=== PATIENT | male | born 1960 | race American Indian/Alaskan Native ===

== ENCOUNTER 2017-04-25 08:35 | Emergency (ER) | payer OTHER ==
[2017-04-25 08:49] VITALS: BMI 28.5
[2017-04-25 08:54] VITALS: BP 150/96; PULSE 68; RESP 18; TEMP 98.2; O2SAT 99
--- NOTE | 2017-04-25 09:04 | C.PDOC ---
History Of Present Illness 56 yo male w/PMHx of gout come in for evaluation of Right knee pain gradually developed for 2 days. Pt reports, pain is localized over Right anterior knee associated with mild swelling. previous sx in past, c/w gout arthritis. Otherwise, pt denies known trauma or injury, fever, chills, knee deformity, denies Right leg weakness, sensory or vascular deficits. Ambulate to Ed for evaluation, not in any apparent distress. Time Seen by Provider: 04/25/17 08:40 Chief Complaint (Nursing): Lower Extremity Problem/Injury History Per: Patient Past Medical History Reviewed: Historical Data, Nursing Documentation, Vital Signs Vital Signs: Last Vital Signs Temp 98.2 F 04/25/17 08:48 Pulse 68 04/25/17 08:48 Resp 18 04/25/17 08:48 BP 150/96 H 04/25/17 08:48 Pulse Ox 99 04/25/17 08:48 - Medical History PMH: Arthritis (Gouty), Diabetes, Fractures (Left Hand), HTN, Hypercholesterolemia, Sleep Apnea (Uses CPAP) Surgical History: Endoscopy - [facility] Procedures ESOPHAGOGASTRODUODENOSCOPY [EGD] W/CLOSED BIOPSY (03/04/14) INJECT/INFUSE NEC (03/28/12) LAPAROSCOPIC ROBOTIC ASSISTED PROCEDURE (07/12/14) LAPAROSCOPIC VERTICAL (SLEEVE) GASTRECTOMY (07/12/14) OTHER ENDOSCOPY OF SM INTEST (07/12/14) TETANUS TOXOID ADMINIST (01/21/15) Family History: States: Unknown Family Hx - Social History Hx Tobacco Use: No Hx Alcohol Use: Yes Hx Substance Use: No - Immunization History Hx Tetanus Toxoid Vaccination: No Hx Influenza Vaccination: Yes (06/2015) Hx Pneumococcal Vaccination: Yes (2014) Review Of Systems Except As Marked, All Systems Reviewed And Found Negative. Constitutional: Negative for: Fever, Chills ENT: Negative for: Throat Pain Respiratory: Negative for: Cough, Shortness of Breath Gastrointestinal: Negative for: Nausea, Vomiting, Abdominal Pain, Diarrhea Musculoskeletal: Positive for: Other (Right knee pain) Skin: Negative for: Lesions Neurological: Negative for: Weakness, Numbness Physical Exam - Physical Exam Appears: Well, Non-toxic, No Acute Distress Skin: Normal Color, Warm, No Rash, No Ecchymosis Neck: Supple Extremity: Normal ROM (Right knee), Tenderness (Right knee tenderness over patella with mild edema. Mild warmth, no erythema, no deformity. FAROM, no neyrovascular deficits.), No Calf Tenderness, No Deformity, No Swelling Neurological/Psych: Oriented x3, Normal Speech, Normal Motor, Normal Sensation, Normal Reflexes ED Course And Treatment Progress Note: On re-evaluation, pt is afebrile, hemodynamicaly stable. Non- toxic. Ambulatory in ED with stable gait. Right knee: exam c/w knee arthralgia. FAROM, no neurovascular deficits, no cellulitis. Pt advised. ref. to F/u with PMD and Ortho in 2-3 days for re-eavl. return to ED if any worsening or new changes. Disposition Counseled Patient/Family Regarding: Diagnosis, Need For Followup, Rx Given - Disposition Referrals: Nemo Galindo MD [Staff Provider] - Disposition: HOME/ ROUTINE Disposition Time: 09:12 Condition: STABLE Additional Instructions: take medication as prescribed Light duty to Right knee Follow up with PMD in 2-3 days for re-evaluation. Return to Ed if any worsening or new changes. Prescriptions: Prednisone [Deltasone] 40 mg PO DAILY #6 tablet Instructions: Gout (ED) Forms: [employer] (Croatian) - Clinical Impression Clinical Impression: Gouty arthropathy
[2017-04-25] MEDS ORDERED: Dexamethasone 4 mg/1 ml IVP STA (09:11)
[2017-04-25] MEDS ORDERED: Dexamethasone 4 mg/1 ml IM STA (09:12)
[2017-04-25] MEDS ORDERED: Dexamethasone 4 mg/1 ml ONE (09:15)
== END 2017-04-25 09:20 | disposition home or self-care (01) ==
LOC: C.ER 08:35
DX: M10.9 Gout, unspecified (principal)
CPT/HCPCS: 96372; 99284; J1100; J1885

== ENCOUNTER 2017-05-02 07:57 | Emergency (ER) | payer OTHER ==
[2017-05-02 09:15] VITALS: BMI 26.4
[2017-05-02] MEDS ORDERED: Lidocaine 1% Inj (20ml) INFIL ONE (09:15)
[2017-05-02] MEDS ORDERED: Bacitracin 500 Units/gm Oint Foilpak UD TOP ONE (09:16)
[2017-05-02] MEDS ORDERED: Bacitracin Ointment 30 GM TUBE TOP STA (09:16)
[2017-05-02] MEDS ORDERED: Bacitracin 500 Units/gm Oint Foilpak UD ONE ×2 (09:22→09:28)
[2017-05-02] MEDS ORDERED: Lidocaine 1% Inj (20ml) ONE (09:22)
[2017-05-02 09:24] VITALS: BP 162/82; PULSE 85; RESP 20; TEMP 98.9; O2SAT 98
--- NOTE | 2017-05-02 09:30 | C.PDOC ---
History Of Present Illness Patient is a 56 y/o M presenting with pain to R thumb. He reports that he pulled on cuticle on that finger and then he developed pain and some swelling. Denies fever. Tetanus UTD Time Seen by Provider: 05/02/17 09:15 Past Medical History Vital Signs: Last Vital Signs Temp 98.9 F 05/02/17 09:21 Pulse 85 05/02/17 09:21 Resp 20 05/02/17 09:21 BP 162/82 H 05/02/17 09:21 Pulse Ox 98 05/02/17 09:48 - Medical History PMH: Arthritis (Gouty), Diabetes, Fractures (Left Hand), HTN, Hypercholesterolemia, Sleep Apnea (Uses CPAP) Surgical History: Endoscopy - [facility] Procedures ESOPHAGOGASTRODUODENOSCOPY [EGD] W/CLOSED BIOPSY (03/04/14) INJECT/INFUSE NEC (03/28/12) LAPAROSCOPIC ROBOTIC ASSISTED PROCEDURE (07/12/14) LAPAROSCOPIC VERTICAL (SLEEVE) GASTRECTOMY (07/12/14) OTHER ENDOSCOPY OF SM INTEST (07/12/14) TETANUS TOXOID ADMINIST (01/21/15) Family History: States: Unknown Family Hx - Social History Hx Tobacco Use: No Hx Alcohol Use: Yes Hx Substance Use: No - Immunization History Hx Tetanus Toxoid Vaccination: Yes (2013) Hx Influenza Vaccination: Yes (06/2015) Hx Pneumococcal Vaccination: Yes (2014) Review Of Systems Constitutional: Negative for: Fever, Chills, Malaise Cardiovascular: Negative for: Chest Pain Respiratory: Negative for: Cough Gastrointestinal: Negative for: Nausea, Vomiting, Abdominal Pain, Diarrhea, Constipation Musculoskeletal: Positive for: Hand Pain Skin: Positive for: Other (+paronychia) Neurological: Negative for: Weakness, Numbness Physical Exam - Physical Exam Appears: Well, Non-toxic, No Acute Distress Head: Atraumatic, Normacephalic Eye(s): bilateral: Normal Inspection, PERRL, EOMI Extremity: No Deformity, Other (paronychia to lateral nail fold of R thumb, no surrounding erythema. normal ROM. Distal pulses intact) Neurological/Psych: Oriented x3, Normal Speech Gait: Steady ED Course And Treatment O2 Sat by Pulse Oximetry: 98 Medical Decision Making Medical Decision Making: Hand soaked in betadine. 1cc 1% lidocaine injected into R thumb. Lateral nail fold was elevated and purulent discharge drained with resolution of pain and swelling. No active bleeding. Wound again cleaned and bacitracin and dressing applied. Disposition - Disposition Disposition: HOME/ ROUTINE Disposition Time: 09:32 Condition: GOOD Additional Instructions: Follow-up with PMD within 2 days. Monitor blood glucose. Return to ED immediately with any worsening symptoms. Instructions: Paronychia (ED) - Clinical Impression Clinical Impression: Paronychia
== END 2017-05-02 10:05 | disposition home or self-care (01) ==
LOC: C.ER 07:57
DX: L03.011 Cellulitis of right finger (principal)

== ENCOUNTER 2017-10-09 10:10 | Emergency (ER) | payer OTHER ==
[2017-10-09 10:11] VITALS: BMI 26.4
[2017-10-09 11:23] LABS: BASO % 0.8 % (0.0-2.0); EOS # 0.1 K/uL (0.0-0.7); EOS % 2.3 % (0.0-4.0); HEMOGLOBIN 12.6 g/dL (12.0-18.0); LYMPH # 1.4 K/uL (1.0-4.3); LYMPH % 23.7 % (20.0-40.0); MEAN CELL VOLUME 85.5 fL (80.0-94.0); MEAN CORPUSCULAR HEMOGLOBIN 28.6 pg (27.0-31.0); MEAN CORPUSCULAR HGB CONC 33.5 g/dL (33.0-37.0); MEAN PLATELET VOLUME 9.4 fL (7.2-11.7); MONO # 0.6 K/uL (0.0-0.8); MONO % 10.5 % (0.0-10.0); NEUT # 3.6 K/uL (1.8-7.0); NEUT % 62.7 % (50.0-75.0); NRBC % 0.1 % (0.0-2.0); RBC 4.41 Mil/uL (4.40-5.90); RED CELL DISTRIBUTION WIDTH 14.7 % (11.5-14.5); WHITE BLOOD COUNT 5.7 K/uL (4.8-10.8)
[2017-10-09 11:29] LABS: URINE BILIRUBIN NEGATIVE (NEGATIVE); URINE BLOOD NEGATIVE (NEGATIVE); URINE CLARITY Clear (Clear); URINE COLOR Straw (YELLOW); URINE GLUCOSE (UA) 3+ mg/dL (Normal); URINE LEUKOCYTE ESTERASE NEG Leu/uL (Negative); URINE NITRATE NEGATIVE (NEGATIVE); URINE PROTEIN NEGATIVE (NEGATIVE); URINE UROBILINOGEN NORMAL mg/dL (0.2-1.0)
--- NOTE | 2017-10-09 11:42 | C.PDOC ---
History Of Present Illness 56-year-old male, PMHx includes Diabetes and Hypertension, presents to the emergency department with complaints of abdominal pain. Patient states he has been experiencing epigastric abdominal pain for the past week, that is associated with nausea, non-bloody/non-bilious vomiting, and watery non-bloody diarrhea. Pain is localized in nature and waxing/waning. Denies fevers, chills, chest pain, shortness of breath, dizziness, back pain, symptoms, headaches, or any other associated symptoms. No other complaints at this time. Time Seen by Provider: 10/09/17 10:34 Chief Complaint (Nursing): Abdominal Pain History Per: Patient History/Exam Limitations: no limitations Onset/Duration Of Symptoms: Days Current Symptoms Are (Timing): Still Present Severity: Moderate Location Of Pain/Discomfort: Epigastric Past Medical History Reviewed: Historical Data, Nursing Documentation, Vital Signs Vital Signs: Last Vital Signs Temp 98.2 F 10/09/17 13:46 Pulse 67 10/09/17 13:46 Resp 20 10/09/17 13:48 BP 161/81 H 10/09/17 13:46 Pulse Ox 99 10/09/17 13:46 - Medical History PMH: Arthritis (Gouty), Diabetes, Fractures (Left Hand), HTN, Hypercholesterolemia, Sleep Apnea (Uses CPAP) Surgical History: Endoscopy - [facility] Procedures ESOPHAGOGASTRODUODENOSCOPY [EGD] W/CLOSED BIOPSY (03/04/14) INJECT/INFUSE NEC (03/28/12) LAPAROSCOPIC ROBOTIC ASSISTED PROCEDURE (07/12/14) LAPAROSCOPIC VERTICAL (SLEEVE) GASTRECTOMY (07/12/14) OTHER ENDOSCOPY OF SM INTEST (07/12/14) TETANUS TOXOID ADMINIST (01/21/15) Family History: States: No Known Family Hx - Social History Hx Tobacco Use: No Hx Alcohol Use: Yes Hx Substance Use: No - Immunization History Hx Tetanus Toxoid Vaccination: Yes (2013) Hx Influenza Vaccination: Yes (06/2015) Hx Pneumococcal Vaccination: Yes (2014) Review Of Systems Except As Marked, All Systems Reviewed And Found Negative. Constitutional: Negative for: Fever, Chills, Weakness Cardiovascular: Negative for: Chest Pain, Palpitations Respiratory: Negative for: Shortness of Breath Gastrointestinal: Positive for: Nausea, Vomiting, Abdominal Pain, Diarrhea Musculoskeletal: Negative for: Back Pain Neurological: Negative for: Weakness, Numbness, Headache, Dizziness Physical Exam - Physical Exam Appears: Non-toxic, No Acute Distress Skin: Warm, Dry, No Rash Head: Normacephalic Eye(s): bilateral: PERRL Nose: Normal Oral Mucosa: Moist Lips: Normal Appearing Neck: Normal ROM Chest: Symmetrical Cardiovascular: Rhythm Regular, No Murmur Respiratory: Normal Breath Sounds, No Accessory Muscle Use Gastrointestinal/Abdominal: Soft, Tenderness (Mild, epigastric), No Guarding, No Rebound Extremity: Normal ROM Neurological/Psych: Oriented x3, Normal Speech ED Course And Treatment - Laboratory Results Result Diagrams: 10/09/17 11:15 10/09/17 11:15 ECG: Interpreted By Me, Viewed By Me ECG Rhythm: Sinus Rhythm Interpretation Of ECG: PAC, Normal intervals. Normal axis. LVH. T wave inversion III Rate From EC O2 Sat by Pulse Oximetry: 96 (RA) Pulse Ox Interpretation: Normal Medical Decision Making Medical Decision Making: Plan: * CT Abd/Pel * EKG * CMP, Lipase, Trop * CBC * Protonix * UA * Reassess and Disposition Reassess: Patient is being discharged for outpatient f/u with Dr Galindo. All questions answered and patient is agreeable with plan. Disposition Counseled Patient/Family Regarding: Studies Performed, Diagnosis, Need For Followup, Rx Given - Disposition Referrals: Garrett Galindo MD [Non-Staff] - Disposition: HOME/ ROUTINE Disposition Time: 13:25 Condition: STABLE Additional Instructions: follow up with your doctor in 2 days call to make an appointment take medications as prescribed return to ER if symptoms worsens or progress Prescriptions: Ciprofloxacin HCl [Cipro] 500 mg PO BID #20 tab Famotidine [Pepcid] 20 mg PO BID #20 tab Metronidazole [Flagyl] 500 mg PO BID #20 tablet Ondansetron ODT [Zofran ODT] 4 mg PO TID PRN #12 odt PRN Reason: Nausea/Vomiting traMADol [Ultram] 50 mg PO TID PRN #12 tab PRN Reason: Pain, Moderate (4-7) Instructions: Colitis (ED) Forms: [facility] (Pashto), General Discharge Instructions - Clinical Impression Clinical Impression: Colitis - Scribe Statement The provider has reviewed the documentation as recorded by the Scribe (Zunaira Ted) All medical record entries made by the Scribe were at my direction and personally dictated by me. I have reviewed the chart and agree that the record accurately reflects my personal performance of the history, physical exam, medical decision making, and the department course for this patient. I have also personally directed, reviewed, and agree with the discharge instructions and disposition.
[2017-10-09 11:49] LABS: CALCIUM 9.6 mg/dl (8.6-10.4); GFR AFRICAN-AMERICAN > 60; GFR NON-AFRICAN AMERICAN 53; LIPASE 79 U/L (23-300)
[2017-10-09 11:51] LABS: ALB/GLOB RATIO 1.2 (1.0-2.1); ALBUMIN 4.8 g/dL (3.5-5.0); ALT/SGPT 58 U/L (21-72); AST/SGOT 75 U/L (17-59); BLOOD UREA NITROGEN 17 mg/dL (9-20)
--- NOTE | 2017-10-09 13:03 | CT ---
PROCEDURE: CT Abdomen and Pelvis without Oral or IV contrast. HISTORY: abd. pain COMPARISON: Abdominal ultrasound performed 02/03/16 TECHNIQUE: Contiguous axial images of the abdomen and pelvis. No oral or IV contrast administered. Coronal and Sagittal reformats generated and reviewed. Radiation dose: Total exam DLP = 1300.28 MGy-cm. This CT exam was performed using one or more of the following dose reduction techniques: Automated exposure control, adjustment of the mA and/or kV according to patient size, and/or use of iterative reconstruction technique. FINDINGS: There is limited evaluation of the solid organs without the administration of IV contrast. LOWER THORAX: No visible consolidation, pleural effusion, or pneumothorax. 3 mm right middle lobe nodule (series 5, image 11). LIVER: Unremarkable unenhanced appearance. GALLBLADDER AND BILE DUCTS: Unremarkable unenhanced appearance. PANCREAS: Unremarkable unenhanced appearance. SPLEEN: Unremarkable unenhanced appearance. ADRENALS: Unremarkable unenhanced appearance. KIDNEYS AND URETERS: No hydronephrosis or obstructing renal calculus. BLADDER: The urinary bladder appears unremarkable. REPRODUCTIVE: Unremarkable. APPENDIX: The appendix appears within normal limits of caliber. Appendicoliths versus residual oral contrast due to outside imaging ; correlate clinically. No secondary signs of acute appendicitis. BOWEL: The stomach is nondistended. Postsurgical gastric changes. Lack of oral contrast limits evaluation for bowel pathology. The bowel loops appear within normal limits of caliber without evidence of intestinal obstruction.Colonic wall thickening at the level of the hepatic flexure; correlate clinically for possibility of colitis. Diverticulosis without diverticulitis. PERITONEUM: No significant free fluid. No definite free air. LYMPH NODES: No bulky lymphadenopathy identified. VASCULATURE: No aortic aneurysm. BONES: Degenerative changes of the spine. Mild retrolisthesis of L5 on S1. Intervertebral disc space narrowing and vacuum disc phenomenon at L5-S1. OTHER FINDINGS: None. IMPRESSION: Colonic wall thickening at the level of the hepatic flexure; correlate clinically for possibility of colitis. Diverticulosis without diverticulitis. The appendix appears within normal limits of caliber. Appendicoliths versus residual oral contrast due to outside imaging ; correlate clinically. No secondary signs of acute appendicitis. 3 mm right middle lobe nodule. In the absence of risk factors for lung cancer, no specific imaging follow-up is required. If the patient is a smoker or has other risk factors, follow-up CT at 12 months is recommended to document stability.
[2017-10-09 13:49] VITALS: RESP 20
[2017-10-09 13:51] VITALS: BP 161/81; PULSE 67; TEMP 98.2
[2017-10-09 14:00] VITALS: O2SAT 96
== END 2017-10-09 13:48 | disposition home or self-care (01) ==
LOC: C.ER 10:10
DX: K52.9 Noninfective gastroenteritis and colitis, unspecified (principal); I10 Essential (primary) hypertension; E11.9 Type 2 diabetes mellitus without complications; E78.00 Pure hypercholesterolemia, unspecified
CPT/HCPCS: 74176; 80053; 81001; 83690; 84484; 85025; 96374; 99285; C9113

== ENCOUNTER 2017-11-01 03:17 | Emergency (ER) | payer OTHER ==
--- NOTE | 2017-11-01 03:18 | C.PDOC ---
History Of Present Illness Patient with a Hx of HTN and diabetes presents to the ER with a complaint of a constant left sided chest discomfort for the past few hours. 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 Denies nausea, vomiting, fever, chills, or SOB. Time Seen by Provider: 11/01/17 03:17 History Per: Patient History/Exam Limitations: no limitations Onset/Duration Of Symptoms: Hrs Current Symptoms Are (Timing): Still Present Severity: Moderate Pain Scale Rating Of: 4 Quality: Other (Discomfort) Associated Symptoms: denies: Nausea, Dyspnea, Diaphoresis, Syncope Modifying Factors: None Exacerbating Factors: None Alleviating Factors: None Recent travel outside of the [place]: No Additional History Per: Patient Past Medical History Reviewed: Historical Data, Nursing Documentation, Vital Signs Vital Signs: Last Vital Signs Temp 97.5 F L 11/01/17 03:32 Pulse 56 L 11/01/17 04:51 Resp 14 11/01/17 04:51 BP 154/90 H 11/01/17 04:51 Pulse Ox 100 11/01/17 04:51 - Medical History PMH: Arthritis (Gouty), Diabetes, Fractures (Left Hand), HTN, Hypercholesterolemia, Sleep Apnea (Uses CPAP) Surgical History: Endoscopy - [facility] Procedures ESOPHAGOGASTRODUODENOSCOPY [EGD] W/CLOSED BIOPSY (03/04/14) INJECT/INFUSE NEC (03/28/12) LAPAROSCOPIC ROBOTIC ASSISTED PROCEDURE (07/12/14) LAPAROSCOPIC VERTICAL (SLEEVE) GASTRECTOMY (07/12/14) OTHER ENDOSCOPY OF SM INTEST (07/12/14) TETANUS TOXOID ADMINIST (01/21/15) Family History: States: No Known Family Hx - Social History Hx Tobacco Use: No Hx Alcohol Use: Yes Hx Substance Use: No - Immunization History Hx Tetanus Toxoid Vaccination: Yes (2013) Hx Influenza Vaccination: Yes (06/2015) Hx Pneumococcal Vaccination: Yes (2014) Review Of Systems Constitutional: Negative for: Fever, Chills ENT: Negative for: Throat Pain Cardiovascular: Positive for: Other (Chest discomfort) Respiratory: Negative for: Shortness of Breath Gastrointestinal: Negative for: Nausea, Vomiting Genitourinary: Negative for: Dysuria Musculoskeletal: Negative for: Back Pain Skin: Negative for: Rash Neurological: Negative for: Weakness Psych: Negative for: Anxiety Physical Exam - Physical Exam Appears: Non-toxic, No Acute Distress Skin: Warm, Dry Head: Normacephalic Eye(s): bilateral: Normal Inspection Oral Mucosa: Moist Neck: Supple Chest: Symmetrical Cardiovascular: Rhythm Regular Respiratory: No Rales, No Rhonchi, No Wheezing Gastrointestinal/Abdominal: Soft, No Tenderness Back: Normal Inspection Extremity: Normal ROM Extremity: Bilateral: Atraumatic Pulses: Left Dorsalis Pedis: Normal, Right Dorsalis Pedis: Normal Neurological/Psych: Oriented x3 Gait: Steady ED Course And Treatment - Laboratory Results Result Diagrams: 11/01/17 03:45 11/01/17 03:45 ECG: Interpreted By Me, Viewed By Me ECG Rhythm: Sinus Rhythm (66), Nonspecific Changes (freq pacs) O2 Sat by Pulse Oximetry: 96 Pulse Ox Interpretation: Normal - Radiology CXR: Interpreted by Me, Viewed By Me CXR Interpretation: No: Infiltrates, Fracture, Pnemothorax Progress Note: EKG, blood work, CXR, and urinalysis ordered. Pepcid administered. Disposition Discussed With Dr.: Nemo Galindo Comment: accepted the pt onhis service and took over the care at 6AM Counseled Patient/Family Regarding: Studies Performed, Diagnosis - Disposition Disposition: HOSPITALIZED Disposition Time: : Condition: FAIR - POA Present On Arrival: Poor Glycemic Control - Clinical Impression Clinical Impression: Chest pain - Scribe Statement The provider has reviewed the documentation as recorded by the Scribe Dariel Cantu All medical record entries made by the Scribe were at my direction and personally dictated by me. I have reviewed the chart and agree that the record accurately reflects my personal performance of the history, physical exam, medical decision making, and the department course for this patient. I have also personally directed, reviewed, and agree with the discharge instructions and disposition. Decision To Admit - Pt Status Changed To: Hospital Disposition Of: Observation - . Bed Request Type: Telemetry Admitting Physician: Nemo Galindo Patient Diagnosis: Chest pain
[2017-11-01 03:19] VITALS: BMI 29.6
[2017-11-01 03:48] LABS: BASO % 0.4 % (0.0-2.0); EOS # 0.1 K/uL (0.0-0.7); EOS % 1.2 % (0.0-4.0); LYMPH # 1.4 K/uL (1.0-4.3); LYMPH % 25.3 % (20.0-40.0); MEAN CELL VOLUME 84.7 fL (80.0-94.0); MEAN CORPUSCULAR HGB CONC 33.1 g/dL (33.0-37.0); MEAN PLATELET VOLUME 9.2 fL (7.2-11.7); MONO # 0.7 K/uL (0.0-0.8); NEUT # 3.5 K/uL (1.8-7.0); NEUT % 61.1 % (50.0-75.0); RBC 4.28 Mil/uL (4.40-5.90); RED CELL DISTRIBUTION WIDTH 15.1 % (11.5-14.5); WHITE BLOOD COUNT 5.7 K/uL (4.8-10.8)
[2017-11-01] MEDS ORDERED: DiphenhydrAMINE 50 mg/ml Inj IVP STA (03:50)
[2017-11-01] MEDS ORDERED: DiphenhydrAMINE 50 mg/ml Inj ONE (03:52)
[2017-11-01 03:55] LABS: INR 1.1; PROTHROMBIN TIME 12.2 SECONDS (9.7-12.2)
[2017-11-01 04:00] LABS: ALB/GLOB RATIO 1.3 (1.0-2.1); ALBUMIN 4.4 g/dL (3.5-5.0); ALT/SGPT 59 U/L (21-72); AST/SGOT 48 U/L (17-59); BLOOD UREA NITROGEN 22 mg/dL (9-20); CALCIUM 8.8 mg/dl (8.6-10.4); GFR AFRICAN-AMERICAN 55; GFR NON-AFRICAN AMERICAN 45; LIPASE 63 U/L (23-300)
[2017-11-01 04:11] LABS: B-TYPE NATRIURETIC PEPTIDE 143 pg/mL (0-900)
[2017-11-01 06:17] VITALS: RESP 18
[2017-11-01 06:41] VITALS: BP 142/69; PULSE 64; TEMP 98.1; O2SAT 99
--- NOTE | 2017-11-01 11:24 | RAD ---
PROCEDURE: CHEST RADIOGRAPH, 1 VIEW HISTORY: chest pain COMPARISON: 01/31/2016 FINDINGS: LUNGS: Clear. PLEURA: No pneumothorax or pleural fluid seen. CARDIOVASCULAR: Normal. OSSEOUS STRUCTURES: No significant abnormalities. VISUALIZED UPPER ABDOMEN: Normal. OTHER FINDINGS: None. IMPRESSION: No active disease.
--- NOTE | 2017-11-03 23:05 | CARD ---
APPROVED REPORT EKG Measurement Heart [id number] <Conclusion> Sinus rhythm with marked sinus arrhythmia with premature atrial complexes with aberrant conduction Otherwise normal ECG
== END 2017-11-01 06:42 | disposition left against medical advice (07) ==
LOC: C.ER 03:17
DX: R07.9 Chest pain, unspecified (principal); E11.9 Type 2 diabetes mellitus without complications; I10 Essential (primary) hypertension; E78.00 Pure hypercholesterolemia, unspecified
CPT/HCPCS: 71045; 80053; 82948; 83690; 83880; 84484; 85025; 85610; 85730; 93005; 94660; 96374; 96375; 99285; J1200

== ENCOUNTER 2017-11-25 07:10 | Emergency (ER) | payer OTHER ==
[2017-11-25 07:10] VITALS: BMI 29.6
[2017-11-25 07:26] VITALS: PULSE 82; RESP 18
--- NOTE | 2017-11-25 07:52 | C.PDOC ---
History Of Present Illness 57 y/o male presents to the ER complaining of right knee pain which began in the morning today. Patient notes that he ate red meat over the past 2 days even though he usually tries to avoid red meat. Patient has flare-up of gout. Time Seen by Provider: 11/25/17 07:27 Chief Complaint (Nursing): Lower Extremity Problem/Injury History Per: Patient History/Exam Limitations: no limitations Onset/Duration Of Symptoms: Hrs Current Symptoms Are (Timing): Still Present Severity: Moderate Past Medical History Reviewed: Historical Data, Nursing Documentation, Vital Signs Vital Signs: Last Vital Signs Temp 98.0 F 11/25/17 09:40 Pulse 82 11/25/17 09:40 Resp 18 11/25/17 09:40 BP 178/107 H 11/25/17 09:40 Pulse Ox 98 11/25/17 10:08 - Medical History PMH: Arthritis (Gouty), Diabetes, Fractures (Left Hand), HTN, Hypercholesterolemia, Sleep Apnea (Uses CPAP) Surgical History: Endoscopy - [facility] Procedures ESOPHAGOGASTRODUODENOSCOPY [EGD] W/CLOSED BIOPSY (03/04/14) INJECT/INFUSE NEC (03/28/12) LAPAROSCOPIC ROBOTIC ASSISTED PROCEDURE (07/12/14) LAPAROSCOPIC VERTICAL (SLEEVE) GASTRECTOMY (07/12/14) OTHER ENDOSCOPY OF SM INTEST (07/12/14) TETANUS TOXOID ADMINIST (01/21/15) Family History: States: No Known Family Hx - Social History Hx Tobacco Use: No Hx Alcohol Use: Yes Hx Substance Use: No - Immunization History Hx Tetanus Toxoid Vaccination: Yes (2013) Hx Influenza Vaccination: Yes (06/2015) Hx Pneumococcal Vaccination: Yes (2014) Review Of Systems Except As Marked, All Systems Reviewed And Found Negative. Constitutional: Negative for: Fever, Chills Musculoskeletal: Positive for: Leg Pain (right knee pain) Physical Exam - Physical Exam Appears: Non-toxic, No Acute Distress Skin: Normal Color, Warm Head: Atraumatic, Normacephalic Eye(s): bilateral: Normal Inspection Nose: Normal Oral Mucosa: Moist Neck: Supple Chest: Symmetrical Cardiovascular: Rhythm Regular Respiratory: Normal Breath Sounds, No Rales, No Rhonchi, No Wheezing Extremity: Normal ROM (right knee), Tenderness (tender to palpation in right knee), No Deformity, Swelling (mild swelling to right knee), Other (right knee- mildly erythematous ) Neurological/Psych: Oriented x3, Normal Speech ED Course And Treatment O2 Sat by Pulse Oximetry: 98 (RA) Pulse Ox Interpretation: Normal Progress Note: Patient given Toradol IV. On re-evaluation, patient shows minimal improvement. Patient has been given 2 tablets of Tylenol with Codeine. Disposition - Disposition Referrals: Nemo Galindo MD [Staff Provider] - Disposition: HOME/ ROUTINE Disposition Time: 09:41 Condition: IMPROVED Additional Instructions: Follow up with PMD within 1-2 days. Return to ED if feel worse. Prescriptions: Acetaminophen with Codeine [Tylenol with Codeine #3 Tablet] 1 - 2 tab PO .4-6H # 30 tablet Instructions: Gout (DC) Forms: [employer] (Salvadorean) - Clinical Impression Clinical Impression: Acute gout of right knee - PA / PLANT TECHNICAL SPECIALIST / Resident Statement MD/DO has reviewed & agrees with the documentation as recorded. - Scribe Statement The provider has reviewed the documentation as recorded by the Fadi Mohr Provider Attestation All medical record entries made by the Federicoibparvez were at my direction and personally dictated by me. I have reviewed the chart and agree that the record accurately reflects my personal performance of the history, physical exam, medical decision making, and the department course for this patient. I have also personally directed, reviewed, and agree with the discharge instructions and disposition.
[2017-11-25] MEDS ORDERED: Acetaminophen-Codeine 300/30 mg Tab PO STA (08:11)
[2017-11-25] MEDS ORDERED: Acetaminophen-Codeine 300/30 mg Tab PO ONE (08:14)
[2017-11-25 09:40] VITALS: BP 178/107; TEMP 98
[2017-11-25 09:44] VITALS: O2SAT 98
== END 2017-11-25 09:49 | disposition home or self-care (01) ==
LOC: C.ER 07:10
DX: M10.9 Gout, unspecified (principal)
CPT/HCPCS: 96374; 99284; J1885

== ENCOUNTER 2018-08-04 07:37 | Emergency (ER) | payer OTHER ==
[2018-08-04 07:49] VITALS: BMI 24.1
[2018-08-04 07:50] VITALS: BP 180/90; PULSE 70; RESP 18; TEMP 97.3; O2SAT 99
--- NOTE | 2018-08-04 08:20 | C.PDOC ---
History Of Present Illness 57 y/o male,w/PMhx of arthritis and gout, presents to the ER for evaluation of left knee pain which has been present since yesterday.Patient stated that he ate steak last night which may have caused gout flare-up. Patient is requesting Toradol and Colchicine. Denies having swelling and redness to knee. Time Seen by Provider: 08/04/18 07:44 Chief Complaint (Nursing): Lower Extremity Problem/Injury History Per: Patient History/Exam Limitations: no limitations Onset/Duration Of Symptoms: Days Current Symptoms Are (Timing): Still Present Severity: Moderate Past Medical History Reviewed: Historical Data, Nursing Documentation, Vital Signs Vital Signs: Last Vital Signs Temp 97.3 F L 08/04/18 07:45 Pulse 70 08/04/18 07:45 Resp 18 08/04/18 07:45 BP 180/90 H 08/04/18 07:45 Pulse Ox 99 08/04/18 07:45 - Medical History PMH: Arthritis, Diabetes, Fractures (Left Hand), HTN, Hypercholesterolemia, Sleep Apnea (Uses CPAP) Surgical History: Endoscopy - [facility] Procedures ESOPHAGOGASTRODUODENOSCOPY [EGD] W/CLOSED BIOPSY (03/04/14) INJECT/INFUSE NEC (03/28/12) LAPAROSCOPIC ROBOTIC ASSISTED PROCEDURE (07/12/14) LAPAROSCOPIC VERTICAL (SLEEVE) GASTRECTOMY (07/12/14) OTHER ENDOSCOPY OF SM INTEST (07/12/14) TETANUS TOXOID ADMINIST (01/21/15) Family History: States: No Known Family Hx - Social History Hx Tobacco Use: No Hx Alcohol Use: Yes Hx Substance Use: No - Immunization History Hx Tetanus Toxoid Vaccination: Yes (2013) Hx Influenza Vaccination: No Hx Pneumococcal Vaccination: Yes (2014) Review Of Systems Except As Marked, All Systems Reviewed And Found Negative. Constitutional: Negative for: Fever, Chills Musculoskeletal: Positive for: Other (left knee pain) Physical Exam - Physical Exam Appears: Other (tall, thin, black male) Skin: Normal Color, Warm, Dry Head: Atraumatic, Normacephalic Eye(s): bilateral: Normal Inspection Nose: Normal Oral Mucosa: Moist Neck: Supple Chest: Symmetrical Cardiovascular: Rhythm Regular Respiratory: Normal Breath Sounds, No Rales, No Rhonchi, No Wheezing Gastrointestinal/Abdominal: Normal Exam, Soft, No Tenderness, No Guarding, No Rebound Extremity: Normal ROM (painful normal ROM of left knee), No Tenderness, No Swelling, Other (no joint effusion to left knee) Neurological/Psych: Oriented x3, Normal Speech ED Course And Treatment O2 Sat by Pulse Oximetry: 99 (RA) Pulse Ox Interpretation: Normal Medical Decision Making Medical Decision Making: L knee gout improved with colchicine and toradol IM (per pt request) Disposition Doctor Will See Patient In The: Office Counseled Patient/Family Regarding: Studies Performed, Diagnosis - Disposition Referrals: Nemo Galindo MD [Staff Provider] - Disposition: HOME/ ROUTINE Disposition Time: 08:19 Condition: GOOD Additional Instructions: colchicine 0.6 mg four times today or until symptoms improved Indocin 50 mg three times a day for pain keep well hydrated Prescriptions: Colchicine 0.6 mg PO QID #30 tablet Instructions: Gout, Lifestyle Changes to Manage Gout Forms: [employer] (Kyrgyz) - Clinical Impression Clinical Impression: Gout of left knee - Scribe Statement The provider has reviewed the documentation as recorded by the Fadi Mohr Provider Attestation: All medical record entries made by the Fadi were at my direction and personally dictated by me. I have reviewed the chart and agree that the record accurately reflects my personal performance of the history, physical exam, medical decision making, and the department course for this patient. I have also personally directed, reviewed, and agree with the discharge instructions and disposition.
== END 2018-08-04 08:35 | disposition home or self-care (01) ==
LOC: C.ER 07:37
DX: M10.9 Gout, unspecified (principal)
CPT/HCPCS: 96372; 99283; J1885

== ENCOUNTER 2019-01-06 13:26 | Outpatient (CLI) | payer OTHER | END 2019-01-06 13:27 | disposition home or self-care (01) | LOC: C.CARD 13:26 | DX: R06.00 Dyspnea, unspecified (principal) ==